=== PATIENT | female | born 1970 | race Caucasian/White ===

== ENCOUNTER 2016-04-22 10:47 | Inpatient (IN) | payer OTHER ==
[2016-04-22 11:11] VITALS: BMI 18.2
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
[2016-04-22] MEDS ORDERED: MENTHOL/PHENOL 1 EACH UD MM PRN (12:07)
[2016-04-22] MEDS ORDERED: LOPERAMIDE HCL 2 MG CAPSULE PO PRN (12:07)
[2016-04-22] MEDS ORDERED: MAGNESIUM HYDROX 2400MG/30ML ORAL SUSPENSION 30 ML CUP PO PRN (12:07)
[2016-04-22] MEDS ORDERED: guaiFENesin/D-METHORPHAN HB 10 ML UNIT-DOSE CUPS PO PRN (12:07)
[2016-04-22] MEDS ORDERED: MAG HYDROX/AL HYDROX/SIMETH 30 ML UNIT-DOSE CUP PO PRN (12:07)
[2016-04-22] MEDS ORDERED: P-EPHED 60MG/TRIPROLIDI 2.5MG TABLET PO PRN (12:07)
[2016-04-22] MEDS ORDERED: IBUPROFEN 400 MG TABLET (FP) PO PRN (12:07)
[2016-04-22] MEDS ORDERED: diphenhydrAMINE HCL 50 MG CAPSULE PO PRN (12:07)
[2016-04-22] MEDS ORDERED: MAGNESIUM CITRATE 300 ML BOTTLE PO PRN (12:07)
[2016-04-22] MEDS ORDERED: chlordiazePOXIDE HCL 25 MG CAPSULE PO ONE (13:39)
[2016-04-22] MEDS ORDERED: METHADONE HCL 10 MG TABLET (FOR DETOX USE ONLY) PO ONE ×2 (13:40→23:00)
[2016-04-22] MEDS: NICOTINE POLACRILEX 2 MG GUM BUC PRN ×2 (14:54→20:41)
[2016-04-22] MEDS: NICOTINE 21 MG/24 HOURS TOPICAL PATCH TD SCH (14:55)
[2016-04-22] MEDS: chlordiazePOXIDE HCL 25 MG CAPSULE PO SCH ×2 (17:43→22:30)
[2016-04-22 20:12] LABS: URINE APPEARANCE TURBID; URINE BLOOD NEGATIVE (NEGATIVE); URINE COLOR AMBER; URINE GLUCOSE (UA) NEGATIVE (NEGATIVE); URINE KETONE NEGATIVE (NEGATIVE); URINE LEUK ESTERASE NEGATIVE (NEGATIVE); URINE NITRITE NEGATIVE (NEGATIVE); URINE UROBILINOGEN 4.0 E.U/dl E.U./dl (0.2-1.0)
[2016-04-22] MEDS: chlordiazePOXIDE HCL 25 MG CAPSULE PO PRN (20:12)
[2016-04-22 20:14] LABS: URINE PROTEIN 1+ (NEGATIVE)
[2016-04-22 20:46] LABS: URINE BACTERIA RARE /hpf (NONE SEEN); URINE MUCUS MANY; URINE RBC 6 /hpf (0-3); URINE WBC 31 /hpf (3-5)
[2016-04-22] MEDS: THIAMINE HCL 100 MG TABLET (FP) PO SCH (22:30)
[2016-04-22] MEDS: ACETAMINOPHEN 325 MG TABLET (FP) PO PRN (22:30)
[2016-04-23] MEDS: NICOTINE POLACRILEX 2 MG GUM BUC PRN ×4 (05:25→17:36)
[2016-04-23] MEDS: chlordiazePOXIDE HCL 25 MG CAPSULE PO SCH ×4 (05:25→22:22)
--- NOTE | 2016-04-23 09:50 | CONSULT ---
[facility] Psychiatric Consult - Data Date of interview: 04/23/16 Admission source: [facility] Identifying data: This is 46 years old female with no psychiatric hospitalization history intoxicated with: Alcohol, Cocaine, PCP, Cannabis, Opioids and Nicotine Substance Abuse History: Drug Screen Negative: No. Urine Drug Screen Results: THC-Marijuana, ISABELLE-Cocaine, OPI-Opiates, PCP-Phencyclidine, TCA-Tricyclic Antidepress, OXY-Oxycodone. - Smoking Cessation. Smoking history: Current every day smoker. Have you smoked in the past 12 months: Yes. Aproximately how many cigarettes per day: 20. Cigars Per Day: 0. Hx Chewing Tobacco Use: No. Initiated information on smoking cessation: Yes. 'Breaking Loose' booklet given: 04/22/16. - Substance & Tx. History. Hx Alcohol Use: Yes. Hx Substance Use: Yes. Substance Use Type: Alcohol, Cocaine, Heroin. Hx Substance Use Treatment: Yes (NATHANIEL 2014) Medical History: LBP, Brain Aneurism history, HepC+, Back surgery history, Weight loss history Psychiatric History: Denies past psychiatirc hiostory, as per computer history of depression. No medications taking prior to admission. Patient reports insomnia and asking for help. Seroquel 100mg po qhs ordered Physical/Sexual Abuse/Trauma History: Denies, unclear Additional Comment: Drug Screen Negative: No. Urine Drug Screen Results: THC- Marijuana, ISABELLE-Cocaine, OPI-Opiates, PCP-Phencyclidine, TCA-Tricyclic Antidepress, OXY-Oxycodone. Observation. Detox Unit Care Protocol Mental Status Exam - Mental Status Exam Alert and Oriented to: Person Cognitive Function: Fair Patient Appearance: Unkempt Mood: Sad Affect: Flat Patient Behavior: Sedated Speech Pattern: Delayed, Slurred Voice Loudness: Mildly Soft/Quiet Thought Process: Circumstantial Thought Disorder: Being Controlled Hallucinations: Denies Suicidal Ideation: Denies Homicidal Ideation: Denies Insight/Judgement: Fair Sleep: Difficulty falling asleep Appetite: Weight loss Muscle strength/Tone: Mild Hypotonicity Gait/Station: Shuffling Additional Comments: Drug Screen Negative: No. Urine Drug Screen Results: THC- Marijuana, ISABELLE-Cocaine, OPI-Opiates, PCP-Phencyclidine, TCA-Tricyclic Antidepress, OXY-Oxycodone. Observation. Detox Unit Care Protocol Psychiatric Findings - Problem List ([place] 1, 2,3) (1) Alcohol dependence with uncomplicated withdrawal Current Visit: Yes Status: Acute (2) Cocaine dependence Current Visit: Yes Status: Acute (3) History of back surgery Current Visit: Yes Status: Acute (4) Nicotine dependence Current Visit: Yes Status: Acute (5) Opioid dependence with withdrawal Current Visit: Yes Status: Acute (6) Weight loss Current Visit: Yes Status: Acute (7) PCP (phencyclidine) abuse Current Visit: Yes Status: Acute - Initial Treatment Plan Initial Treatment Plan: Observation. Detox Unit Care Protocol. Seroquel 100mg po qhs
[2016-04-23] MEDS ORDERED: METHADONE HCL 10 MG TABLET (FOR DETOX USE ONLY) PO SCH (10:00)
[2016-04-23] MEDS: PRENATAL VITAMINS W/ FOLIC ACID TABLET (FP) PO SCH (10:27)
[2016-04-23] MEDS: NICOTINE 21 MG/24 HOURS TOPICAL PATCH TD SCH (10:28)
--- NOTE | 2016-04-23 10:35 | PN ---
[facility] CIWA - CIWA Score Nausea/Vomitin Muscle Tremors: 3 Anxiety: 3 Agitation: 3 Paroxysmal Sweats: 3 Orientation: 0-Oriented Tacttile Disturbances: 2-Mild Itch/Numbness/Burn Auditory Disturbances: 0-None Visual Disturbances: 0-None Headache: 0-None Present CIWA-Ar Total Score: 17 BHS COWS - Scale Resting Pulse: 0= [place] 80 or Below Sweatin=Flushed/Facial Moisture Restless Observation: 1= Difficult to Sit Still Pupil Size: 1= Pupils >than Normal Bone or Joint Aches: 2= Severe Diffuse Aches Runny Nose/ Eye Tearin= Nasal Congestion GI Upset > 30mins: 2= Nausea/Diarrhea Tremor Observation of Outstretched Hands: 2= Slight Tremor Visible Yawning Observation: 0= None Anxiety or Irritability: 2=Irritable/Anxious Goose Flesh Skin: 0=Smooth Skin COWS Score: 13 BHS Progress Note (SOAP) Subjective: interrupted sleep, sweats, nausea left rib pain -fx Objective: 04/23/16 10:31 Vital Signs Temperature 95.2 F L 04/23/16 10:21 Pulse Rate 79 04/23/16 10:21 Respiratory Rate 16 04/23/16 10:21 Blood Pressure 95/63 04/23/16 10:21 O2 Sat by Pulse Oximetry (%) Laboratory Tests 04/22/16 14:00 Urine Color Tiffani Urine Appearance Turbid Urine pH 5.0 Ur Specific [place] 1.029 Urine Protein 1+ H Urine Glucose (UA) Negative Urine Ketones Negative Urine Blood Negative Urine Nitrite Negative Urine Bilirubin 4.0 Urine Urobilinogen 4.0 e.u/dl H Ur Leukocyte Esterase Negative Urine RBC 6 Urine WBC 31 Ur Epithelial Cells Rare Urine Bacteria Rare Urine Mucus Many pending labs pt aox3 in nad ambulating Assessment: 04/23/16 10:32 withdrawl sx's left rib fx. Plan: cont. detox increase fluids ensure bid motrin prn
[2016-04-23 11:38] LABS: MCH 27.4 pg (25.7-33.7); MCHC 33.3 g/dl (32.0-36.0); MEAN CELL VOLUME 82.2 fl (80-96); MEAN PLT VOLUME 8.5 fl (7.5-11.1); PLATELET COUNT 297 K/MM3 (134-434); RDW 15.6 % (11.6-15.6)
[2016-04-23 12:11] LABS: ALBUMIN 3.4 g/dl (3.4-5.0); ANION GAP 5 (8-16); CALCIUM 9.2 mg/dL (8.5-10.1); CO2 29 mmol/L (21-32); GLUCOSE,RANDOM 83 mg/dL (74-106)
[2016-04-23 12:15] LABS: ALK PHOS 87 U/L (45-117); BILIRUBIN,TOTAL 0.7 mg/dL (0.2-1.0); CREATININE 0.9 mg/dL (0.55-1.02); SGOT/AST 17 U/L (15-37); SGPT/ALT 20 U/L (12-78); TOT PROT 7.8 g/dl (6.4-8.2)
[2016-04-23] MEDS: chlordiazePOXIDE HCL 25 MG CAPSULE PO PRN (12:44)
[2016-04-23] MEDS: QUEtiapine FUMARATE 100 MG TABLET (FP) PO SCH (22:21)
[2016-04-23] MEDS: THIAMINE HCL 100 MG TABLET (FP) PO SCH (22:22)
[2016-04-24] MEDS: chlordiazePOXIDE HCL 25 MG CAPSULE PO SCH ×2 (05:28→10:24)
--- NOTE | 2016-04-24 10:00 | PN ---
[facility] CIWA - CIWA Score Nausea/Vomitin Muscle Tremors: 3 Anxiety: 3 Agitation: 2 Paroxysmal Sweats: 1-Minimal Palms Moist Orientation: 0-Oriented Tacttile Disturbances: 1-Very Mild Itch/Numbness Auditory Disturbances: 1-Very Mild Visual Disturbances: 1-Very Mild Sensitivity Headache: 2-Mild CIWA-Ar Total Score: 17 BHS COWS - Scale Resting Pulse: 1= [place] 81-100 Sweatin= Chills/Flushing Restless Observation: 3= Extraneous Movement Pupil Size: 1= Pupils >than Normal Bone or Joint Aches: 2= Severe Diffuse Aches Runny Nose/ Eye Tearin= Runny Nose/Eyes GI Upset > 30mins: 2= Nausea/Diarrhea Tremor Observation of Outstretched Hands: 2= Slight Tremor Visible Yawning Observation: 1= 1-2x During Session Anxiety or Irritability: 2=Irritable/Anxious Goose Flesh Skin: 0=Smooth Skin COWS Score: 17 [facility] Progress Note (SOAP) Subjective: alert,irritable,anxious,interrupted sleep,tremor,pain in the body and back Objective: 04/24/16 10:00 Vital Signs Temperature 97.9 F 04/24/16 06:22 Pulse Rate 95 H 04/24/16 06:22 Respiratory Rate 20 04/24/16 06:22 Blood Pressure 100/70 04/24/16 06:22 O2 Sat by Pulse Oximetry (%) Assessment: 04/24/16 10:00 withdrawal symptom Plan: continue detox
--- NOTE | 2016-04-24 10:07 | PN ---
Psychiatric Progress Note Vital Signs: Vital Signs Period Temp Pulse Resp BP Sys/Gutierrez Pulse Ox Last 24 Hr 95.2 F-98.4 F 79-95 16-20 90-100/54-70 Date of Session: 04/24/16 Chief Complaint:: Follow up visit HPI: Called to evaluate this 46 y/o female for complaints of anxiety and depressed mood.Day 3 of detox treatment for alcohol,cocaine,opioid,cannabis dependence co-morbid with phencyclidine dependence and substance-induced mood disorder. ROS: Medical issues are noted (S data appreciated).Review of systems is unremarkable.Patient is ambulatory,steady and well related.No somatic complaints offered at this time.Cognition remains intact. Current Medications: Active Medications Generic Name Dose Route Start Last Admin Trade Name Freq PRN Reason Stop Dose Admin Acetaminophen 650 mg 04/22/16 12:07 04/22/16 22:30 Tylenol - PO 650 mg Q4H PRN Administration FEVER OR PAIN Al Hydroxide/Mg Hydroxide 30 ml 04/22/16 12:07 Mylanta Oral Suspension - PO Q6H PRN DYSPEPSIA Chlordiazepoxide HCl 10 mg 04/25/16 17:00 Librium - PO 04/26/16 11:01 [id number] DASIA Chlordiazepoxide HCl 25 mg 04/22/16 12:07 04/23/16 12:44 Librium - PO 04/25/16 12:08 25 mg Q4H PRN Administration WITHDRAWAL(CONT SUBST) Chlordiazepoxide HCl 25 mg 04/23/16 17:00 04/24/16 05:28 Librium - PO 04/24/16 11:01 25 mg [id number] DASIA Administration Chlordiazepoxide HCl 15 mg 04/24/16 17:00 Librium - PO 04/25/16 11:01 [id number] DASIA Diphenhydramine HCl 50 mg 04/22/16 12:07 04/23/16 22:22 Benadryl - PO 50 mg HSMR1 PRN Administration INSOMNIA Eucalyptus/Menthol/Phenol/Sorbitol 1 each 04/22/16 12:07 Cepastat Lozenge - MM Q4H PRN SORE THROAT Guaifenesin 10 ml 04/22/16 12:07 Robitussin Dm - PO Q6H PRN COUGH Hydroxyzine Pamoate 25 mg 04/22/16 12:07 Vistaril - PO Q4H PRN AGITATION Ibuprofen 400 mg 04/22/16 12:07 04/23/16 10:30 Motrin - PO 400 mg Q6H PRN Administration SEVERE PAIN Loperamide HCl 4 mg 04/22/16 12:07 Imodium - PO Q6H PRN DIARRHEA Magnesium Citrate 300 ml 04/22/16 12:07 Citroma - PO Q48H PRN CONSTIPATION Magnesium Hydroxide 30 ml 04/22/16 12:07 Milk Of Magnesia - PO DAILY PRN CONSTIPATION Methadone HCl 10 mg 04/26/16 10:00 Dolophine - PO 04/26/16 10:01 DAILY DASIA Methadone HCl 15 mg 04/24/16 10:00 Dolophine - PO 04/25/16 10:01 DAILY DASIA Methadone HCl 5 mg 04/27/16 06:00 Dolophine - PO 04/27/16 06:01 DAILY@0600 DASIA Nicotine 21 mg 04/22/16 13:41 04/23/16 10:28 Nicoderm Patch - TD 21 mg DAILY DASIA Administration Nicotine Polacrilex 2 mg 04/22/16 12:07 04/23/16 17:36 Nicorette Gum - BUC 2 mg Q2H PRN Administration NICOTINE REPLACEMENT RX Multivit/Folic Acid/Iron 1 tab 04/23/16 10:00 04/23/16 10:27 Vitamins (Sjr) - PO 1 tab DAILY DASIA Administration Pseudoephedrine/Triprolidine 1 combo 04/22/16 12:07 Actifed - PO TID PRN NASAL CONGESTION Quetiapine Fumarate 100 mg 04/23/16 22:00 04/23/16 22:21 Seroquel - PO 100 mg HS DASIA Administration Thiamine HCl 100 mg 04/22/16 22:00 04/23/16 22:22 Vitamin B1 - PO 100 mg HS DASIA Administration Medication(s) Change(s): No indication for initiation of an antidepressant medication at this stage of hospital course. Current Side Effect: No Lab tests ordered: No Lab tests reviewed: Yes Provider note:: Chart reviewed.Dr Westfall's note is read and appreciated.Nursing notes are also revisited.Met with the patient.She is tearful ,visibly upset,sad and dysphoric.Ms Schwartz reports that she had just lost her of five years to heroin overdose on 04/02/2016.Her reportedly at home in her presence.Patient admits to being revisited by the memories of this tragic event and feeling despondent over her loss.She is, however,concerned about her own recovery and she indicates to this signwriter that her immediate plan is to transition to rehabilitation.Ms Schwarzt denies suicidal or homicidal ideation.She expresses acceptance of the situation, willingness to go forward and a heightened motivation for sobriety.Patient is articulate,receptive to empathy. support and emotionally well controlled.Mental status is stable.Patient is going through the natural process of bereavement.MSE completed.Patient is manageable on a detox unit.Will address anxiety with prn doses of hydroxyzine.Condolences extended to the patient.Discussed with the Multidisciplinary team. Total face to face time:: 55 Mental Status Exam - Mental Status Exam Alert and Oriented to: Time, Place, Person Cognitive Function: Good Patient Appearance: Well Groomed Mood: Depressed, Sad, Nervous, Anxious Affect: Mood Congruent, Constricted Patient Behavior: Crying, Fatigued, Talkative, Appropriate, Cooperative Speech Pattern: Clear, Appropriate Voice Loudness: Moderately Soft/Quiet Thought Process: Intact, Goal Oriented Thought Disorder: Not Present Hallucinations: Denies Suicidal Ideation: Denies Homicidal Ideation: Denies Insight/Judgement: Fair Sleep: Fair Muscle strength/Tone: Normal Gait/Station: Normal Psychiatric Treatment Plan - Problem List (1) Bereavement Current Visit: Yes (2) Grief Current Visit: Yes (3) Alcohol dependence with uncomplicated withdrawal Current Visit: Yes (4) Opioid dependence with withdrawal Current Visit: Yes (5) Cocaine dependence Current Visit: Yes (6) Nicotine dependence Current Visit: Yes (7) Cannabis abuse Current Visit: Yes (8) PCP (phencyclidine) abuse Current Visit: Yes (9) Hepatitis C Current Visit: Yes (10) Brain aneurysm Current Visit: Yes (11) Low back pain Current Visit: Yes (12) Weight loss Current Visit: Yes (13) History of back surgery Current Visit: Yes
[2016-04-24] MEDS: NICOTINE 21 MG/24 HOURS TOPICAL PATCH TD SCH (10:24)
[2016-04-24] MEDS: PRENATAL VITAMINS W/ FOLIC ACID TABLET (FP) PO SCH (10:24)
[2016-04-24] MEDS: METHADONE HCL 5 MG TABLET (FOR DETOX USE ONLY) PO SCH (10:24)
[2016-04-24] MEDS: NICOTINE POLACRILEX 2 MG GUM BUC PRN ×2 (10:27→15:05)
[2016-04-24] MEDS: hydrOXYzine PAMOATE 25 MG CAPSULE (FP) PO PRN (14:38)
[2016-04-24] MEDS: chlordiazePOXIDE 5 MG CAPSULE PO SCH ×2 (17:35→22:24)
[2016-04-24] MEDS: QUEtiapine FUMARATE 100 MG TABLET (FP) PO SCH (22:24)
[2016-04-24] MEDS: THIAMINE HCL 100 MG TABLET (FP) PO SCH (22:24)
[2016-04-24] MEDS: CYCLOBENZAPRINE HCL 10 MG TABLET (FP) PO PRN (22:24)
[2016-04-25] MEDS: chlordiazePOXIDE 5 MG CAPSULE PO SCH ×2 (05:50→10:47)
[2016-04-25] MEDS: PRENATAL VITAMINS W/ FOLIC ACID TABLET (FP) PO SCH (10:47)
[2016-04-25] MEDS: METHADONE HCL 5 MG TABLET (FOR DETOX USE ONLY) PO SCH (10:47)
[2016-04-25] MEDS: NICOTINE 21 MG/24 HOURS TOPICAL PATCH TD SCH (10:47)
[2016-04-25] MEDS: NICOTINE POLACRILEX 2 MG GUM BUC PRN ×2 (10:48→19:23)
--- NOTE | 2016-04-25 11:57 | PN ---
BHS Progress Note (SOAP) Subjective: alert,irrtable,anxious,interrupted sleep,pain i the body Objective: 04/25/16 11:56 Vital Signs Temperature 98.2 F 04/25/16 10:00 Pulse Rate 100 H 04/25/16 10:00 Respiratory Rate 18 04/25/16 10:00 Blood Pressure 113/55 04/25/16 10:00 O2 Sat by Pulse Oximetry (%) Assessment: 04/25/16 11:56 withdrawal symptom Plan: continue detox
[2016-04-25] MEDS: LIDOCAINE 5% TOPICAL PATCH TP SCH (12:38)
[2016-04-25] MEDS: chlordiazePOXIDE HCL 10 MG CAPSULE PO SCH ×2 (17:19→22:08)
[2016-04-25] MEDS: CYCLOBENZAPRINE HCL 10 MG TABLET (FP) PO PRN (22:08)
[2016-04-25] MEDS: QUEtiapine FUMARATE 100 MG TABLET (FP) PO SCH (22:08)
[2016-04-25] MEDS: THIAMINE HCL 100 MG TABLET (FP) PO SCH (22:08)
[2016-04-26] MEDS: NICOTINE POLACRILEX 2 MG GUM BUC PRN ×3 (03:38→10:19)
[2016-04-26] MEDS: chlordiazePOXIDE HCL 10 MG CAPSULE PO SCH ×2 (05:32→10:13)
[2016-04-26] MEDS ORDERED: METHADONE HCL 10 MG TABLET (FOR DETOX USE ONLY) PO SCH (10:00)
[2016-04-26] MEDS: NICOTINE 21 MG/24 HOURS TOPICAL PATCH TD SCH (10:13)
[2016-04-26] MEDS: LIDOCAINE 5% TOPICAL PATCH TP SCH (10:13)
[2016-04-26] MEDS: PRENATAL VITAMINS W/ FOLIC ACID TABLET (FP) PO SCH (10:13)
--- NOTE | 2016-04-26 10:37 | PN ---
BHS Progress Note (SOAP) Subjective: SWEATING,INTERRUPTED SLEEP,RESTLESS Objective: 04/26/16 10:36 Vital Signs - 8 hr 04/26/16 04/26/16 06:00 10:00 Temperature 98.2 F 97.9 F Pulse Rate 107 H 104 H Respiratory 16 18 Rate Blood Pressure 91/54 106/69 Laboratory Last Values WBC 8.0 K/mm3 (4.0-10.0) 04/23/16 06:00 RBC 4.33 M/mm3 (3.60-5.2) 04/23/16 06:00 Hgb 11.9 GM/dL (10.7-15.3) 04/23/16 06:00 Hct 35.6 % (32.4-45.2) 04/23/16 06:00 MCV 82.2 fl (80-96) 04/23/16 06:00 MCHC 33.3 g/dl (32.0-36.0) 04/23/16 06:00 RDW 15.6 % (11.6-15.6) 04/23/16 06:00 Plt Count 297 K/MM3 (134-434) 04/23/16 06:00 MPV 8.5 fl (7.5-11.1) 04/23/16 06:00 Sodium 137 mmol/L (136-145) 04/23/16 06:00 Potassium 4.3 mmol/L (3.5-5.1) 04/23/16 06:00 Chloride 103 mmol/L (98-107) 04/23/16 06:00 Carbon Dioxide 29 mmol/L (21-32) 04/23/16 06:00 Anion Gap 5 (8-16) L 04/23/16 06:00 BUN 14 mg/dL (7-18) 04/23/16 06:00 Creatinine 0.9 mg/dL (0.55-1.02) 04/23/16 06:00 Creat Clearance w eGFR > 60 (>60) 04/23/16 06:00 Random Glucose 83 mg/dL (74-106) 04/23/16 06:00 Calcium 9.2 mg/dL (8.5-10.1) 04/23/16 06:00 Total Bilirubin 0.7 mg/dL (0.2-1.0) 04/23/16 06:00 AST 17 U/L (15-37) 04/23/16 06:00 ALT 20 U/L (12-78) 04/23/16 06:00 Alkaline Phosphatase 87 U/L (45-117) 04/23/16 06:00 Total Protein 7.8 g/dl (6.4-8.2) 04/23/16 06:00 Albumin 3.4 g/dl (3.4-5.0) 04/23/16 06:00 Urine Color Tiffani 04/22/16 14:00 Urine Appearance Turbid 04/22/16 14:00 Urine pH 5.0 (5.0-8.0) 04/22/16 14:[address] 1.029 (1.001-1.035) 04/22/16 14:00 Urine Protein 1+ (NEGATIVE) H 04/22/16 14:00 Urine Glucose (UA) Negative (NEGATIVE) 04/22/16 14:00 Urine Ketones Negative (NEGATIVE) 04/22/16 14:00 Urine Blood Negative (NEGATIVE) 04/22/16 14:00 Urine Nitrite Negative (NEGATIVE) 04/22/16 14:00 Urine Bilirubin 4.0 (NEGATIVE) 04/22/16 14:00 Urine Urobilinogen 4.0 e.u/dl E.U./dl (0.2-1.0) H 04/22/16 14:00 Ur Leukocyte Esterase Negative (NEGATIVE) 04/22/16 14:00 Urine RBC 6 /hpf (0-3) 04/22/16 14:00 Urine WBC 31 /hpf (3-5) 04/22/16 14:00 Ur Epithelial Cells Rare /hpf (FEW) 04/22/16 14:00 Urine Bacteria Rare /hpf (NONE SEEN) 04/22/16 14:00 Urine Mucus Many 04/22/16 14:00 RPR Titer Nonreactive (NONREACTIVE) 04/23/16 06:00 LABS NOTED Assessment: 04/26/16 10:37 WITHDRAWAL SX. Plan: CONTINUE DETOX
[2016-04-26] MEDS: ACETAMINOPHEN 325 MG TABLET (FP) PO PRN (12:32)
[2016-04-26] MEDS: hydrOXYzine PAMOATE 25 MG CAPSULE (FP) PO PRN (15:27)
[2016-04-26] MEDS: QUEtiapine FUMARATE 100 MG TABLET (FP) PO SCH (22:22)
[2016-04-26] MEDS: CYCLOBENZAPRINE HCL 10 MG TABLET (FP) PO PRN (22:22)
[2016-04-26] MEDS: THIAMINE HCL 100 MG TABLET (FP) PO SCH (22:22)
[2016-04-27] MEDS ORDERED: METHADONE HCL 5 MG TABLET (FOR DETOX USE ONLY) PO SCH (06:00)
--- NOTE | 2016-04-27 07:46 | PN ---
S Progress Note (SOAP) Subjective: alert,no complaint Objective: 04/27/16 07:45 Vital Signs Temperature 97.9 F 04/27/16 06:00 Pulse Rate 91 H 04/27/16 06:00 Respiratory Rate 16 04/27/16 06:00 Blood Pressure 97/61 04/27/16 06:00 O2 Sat by Pulse Oximetry (%) Assessment: 04/27/16 07:45 detox completed ,no withdrawal symptom Plan: discharge today,follow up with after care program as arrangement
--- NOTE | 2016-04-27 07:52 | DS ---
[facility] Detox Discharge Summary Admission Date: 04/22/16 Discharge Date: 04/27/16 - History Present History: Alcohol Dependence, Cocaine Dependence, Opioid Dependence Additional Comments: follow up with after care program as arrangement and pmd for medical problem Pertinent Past History: low back pain s/p surgery of back hepatitis c nicotine dependence weight loss depression history of brain aneurysm fracture of left rib - Physical Exam Results Vital Signs: Vital Signs Temperature 97.9 F 04/27/16 06:00 Pulse Rate 91 H 04/27/16 06:00 Respiratory Rate 16 04/27/16 06:00 Blood Pressure 97/61 04/27/16 06:00 O2 Sat by Pulse Oximetry (%) Pertinent Admission Physical Exam Findings: withdrawal symptom - Treatment Hospital Course: Detox Protocol Followed, Detoxed Safely, Responded well, Discharged Condition Good Patient has Accepted a Rehab Referral to: declined - Medication Discharge Medications: Ambulatory Orders Quetiapine Fumarate [Seroquel] 100 mg PO HS #30 tablet 04/23/16 - Diagnosis (1) Opioid dependence with withdrawal Current Visit: Yes Status: Acute (2) Alcohol dependence with uncomplicated withdrawal Current Visit: Yes Status: Acute (3) Cocaine dependence Current Visit: Yes Status: Acute (4) Fracture of rib of left side Current Visit: Yes Status: Acute (5) Low back pain Current Visit: Yes Status: Acute (6) History of back surgery Current Visit: Yes Status: Acute (7) Hepatitis C Current Visit: Yes Status: Acute (8) Brain aneurysm Current Visit: Yes Status: Acute (9) Nicotine dependence Current Visit: Yes Status: Acute (10) Weight loss Current Visit: Yes Status: Acute (11) Depression Current Visit: Yes Status: Acute - AMA Did Patient Leave Against Medical Advice: No
[2016-04-27] MEDS: PRENATAL VITAMINS W/ FOLIC ACID TABLET (FP) PO SCH (09:30)
[2016-04-27] MEDS: NICOTINE 21 MG/24 HOURS TOPICAL PATCH TD SCH (09:30)
[2016-04-27] MEDS: LIDOCAINE 5% TOPICAL PATCH TP SCH (09:30)
[2016-04-27 10:16] VITALS: BP 111/63; PULSE 113; TEMP 98.1
== END 2016-04-27 09:42 | disposition home or self-care (01) | DRG 773 ==
LOC: YASAS 10:47 → Y6N 13:25
PROVIDERS: ADMIT Internal Medicine Addiction Medicine; ATTEND Internal Medicine Addiction Medicine
PROC: HZ2ZZZZ Detoxification Services for Substance Abuse Treatment (ICD-10-PCS; principal; 2016-04-22)
DX: F11.23 Opioid dependence with withdrawal (principal); F10.230 Alcohol dependence with withdrawal, uncomplicated; F14.20 Cocaine dependence, uncomplicated; F17.210 Nicotine dependence, cigarettes, uncomplicated; F32.9 Major depressive disorder, single episode, unspecified; F43.21 Adjustment disorder with depressed mood; Z63.4 Disappearance and death of family member; M54.5 Low back pain; B18.2 Chronic viral hepatitis C; R29.6 Repeated falls; Z91.81 History of falling; Z86.79 Personal history of other diseases of the circulatory system; Z87.898 Personal history of other specified conditions; S22.32XD Fracture of one rib, left side, subsequent encounter for fracture with routine healing; W19.XXXD Unspecified fall, subsequent encounter
CPT/HCPCS: 36415; 80053; 81003; 81015; 85027; 86593; 93005; 93010